=== PATIENT | male | born 1970 | race Caucasian/White ===

== ENCOUNTER 2025-08-02 13:49 | Day surgery (SDC) | payer BC, SELFPAY ==
[2025-08-02] MEDS: LACTATED RINGERS 1000 ML 1,000 ML 100 ML IV (02:20)
[2025-08-02 14:06] VITALS: BMI 28.3
[2025-08-02] MEDS: SODIUM CHLORIDE 0.9 % (FLUSH) 10 ML SYRINGE IVF (14:20)
[2025-08-02 14:21] VITALS: BP 115/84; PULSE 82; RESP 16; TEMP 36.7; O2SAT 95
--- NOTE | 2025-08-02 16:46 | W.PM.H&PU ---
History & Physical Update History & Physical Update H&P Reviewed and patient assessed: No changes noted
--- NOTE | 2025-08-02 16:47 | P.GSOP_ITS ---
Operative Note Date of procedure: 08/02/25 Pre-op diagnosis: Umbilical hernia Post-op diagnosis: Same Type of Procedure: Open repair of 1.5 cm umbilical hernia with mesh Indications: The patient is a 54-year-old male who has had a bulge at his umbilicus for at least a year. He has had increasing symptoms with Valsalva. After discussion o f risks the benefits, he elected to proceed with repair. Procedure Description: After discussing the risks and benefits of the procedure, the patient signed informed consent.? The operative site was marked and the patient was brought to the operating room and placed on the operating table in supine position.? Care was taken to pad the patient's pressure points.?? The patient was then given sedation by anesthesia.?? The operative site was then prepped and draped in the usual sterile fashion.? A time-out was then performed. Local anesthetic was injected into the fascia, skin and subcutaneous tissues. A curvilinear incision was made just below the umbilicus. Dissection was carried down into the subcutaneous tissue using cautery. The hernia sac was encountered and care was taken to not enter it. Dissection was taken down to the fascia, and the umbilical stalk was carefully dissected off of the hernia sac. Once the hernia sac was dissected out circumferentially, it was reduced. The fascial edges were then cleared circumferentially. The hernia was 1.5 cm and so the decision was made to close this primarily. 0 Nurolon sutures were then used to close the defect in a [id number] fashion. The umbilicus was reapproximated to the fascia. The skin was then closed with running absorbable suture. Glue and a sterile dressing was then applied. The patient was then woken and transported to the recovery area in stable condition. ? The patient tolerated the procedure well. Findings: 1.5 cm fat containing umbilical hernia Anesthesia: MAC Surgeon: Tatiana Knott MD Estimated blood loss (mL): 1 Condition: stable Disposition: same day
[2025-08-02] MEDS: BUPIVACAINE 0.25% 30 ML INJECTION (17:52)
[2025-08-02 18:05] VITALS: BP 93/64; PULSE 69; RESP 16; TEMP 36.3; O2SAT 92
--- NOTE | 2025-08-02 18:15 | P.ANES_ITS ---
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
--- NOTE | 2025-08-02 18:15 | W.ANESCHARGE ---
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
[2025-08-02 18:20] VITALS: BP 95/68; PULSE 78; RESP 16; TEMP 36.1; O2SAT 92
[2025-08-02 18:35] VITALS: BP 96/69; PULSE 66; RESP 16; O2SAT 94
[2025-08-02 18:50] VITALS: BP 108/81; PULSE 65; RESP 18; TEMP 36; O2SAT 95
[2025-08-02 19:15] VITALS: BP 101/74; PULSE 62; RESP 18; TEMP 36; O2SAT 96
--- NOTE | 2025-08-02 19:29 | PC.NURSE ---
Discharge - Pt arrived from same day surgery at approximately 1805. Pt drowsy on arrival, able to answer questions and follow directions. Tolerating RA and denied pain in abdomen. Dressing CDI. Pt able to tolerate regular diet/fluids during shift. On discharge, pt reported feeling great and asked to get dressed. D/C education provided to pt and spouse, both able to verbalize understanding. IV removed with catheter intact, pt d/c to home via wheelchair with spouse at approximately 1915.
== END 2025-08-02 19:15 | disposition home or self-care (01) ==
LOC: OR 16:50 → MEDSURG 18:52
PROVIDERS: Visit Provider Surgery
PROC: (CPT 49591; principal; 2025-08-02 15:15)
DX: K42.9 Umbilical hernia without obstruction or gangrene (principal)
CPT/HCPCS: 49591; 00750; J0665; J0690; J1100; J1885; J2250; J2405; J2704; J3010; J7120